=== PATIENT | female | born 1960 | race Asian ===

== ENCOUNTER 2017-10-09 20:17 | Emergency (ER) | payer SELFPAY ==
[~2017-10-09] VITALS: Ht 167.6 cm; Wt 81.6 kg
[~2017-10-09 20:17] MED LIST: LISI10TA5 PO
--- NOTE | 2017-10-09 20:20 | NUR ---
BBRA 881 FROM HOME. PT C/O FEVER AND N/V & COUGH X1 DAY. PT NOT COMMUNICATING WELL ON SYMPTOMS, PT IS KICKING, THRASHING AND BANGING. PT PLACED ON MONITOR AND GOWNED. WILL CONTINUE TO MONITOR.
[2017-10-09] MEDS ORDERED: LORAZEPAM INJ 2 MG/ML VIAL ONE (20:40)
--- NOTE | 2017-10-09 20:44 | NUR ---
VERBAL ORDER FROM DR. NELSON ATELIZABETH 1MG IM X1 NOW. MEDICATED PT ORDERED.
[2017-10-09] MEDS ORDERED: ONDANSETRON HCL/PF 4 MG/2 ML VIAL IVP ONE (21:00)
[2017-10-09] MEDS ORDERED: IV NS 0.9% 1,000 ML BAG IV ONE ×2 (21:00→22:00)
[2017-10-09] MEDS ORDERED: LORAZEPAM INJ 2 MG/ML VIAL IM ONE (21:00)
[2017-10-09] MEDS ORDERED: HALOPERIDOL LACTATE INJ 5 MG/ML VIAL ONE (21:01)
[2017-10-09] MEDS ORDERED: HALOPERIDOL LACTATE INJ 5 MG/ML VIAL IM ONE (21:30)
--- NOTE | 2017-10-09 21:36 | NUR ---
PT REMAINS RESTLESS, UNCOOPERATIVE, SPITTING, THRASHING AND BANGING. MD MADE AWARE WITH ORDERS RECEIVED. WILL CARRY OUT ORDERS.
[2017-10-09] MEDS ORDERED: ONDANSETRON HCL/PF 4 MG/2 ML VIAL ONE (21:44)
--- NOTE | 2017-10-09 21:45 | NUR ---
PT PLACED ON RESTRAINTS Addendum: 10/09/17 at 2157 by [email or web address] PER VERBAL MD ORDER
--- NOTE | 2017-10-09 22:10 | NUR ---
PT RESTING IN BED. VITAL SIGNS STABLE, PT ON MONITOR. NAD NOTED. RESPIRATIONS EVEN AND UNLABORED. CALL LIGHT WITHIN REACH.
--- NOTE | 2017-10-09 22:45 | NUR ---
PT'S SIGNIFICANT OTHER AT BESIDE, AWARE OF TREATMENT. PT RESTING COMFORTABLY. NAD NOTED. RESPIRATIONS EVEN AND UNLABORED. PT EASILY AROUSABLE. PT ON MONITOR, CALL LIGHT WITHIN REACH.
[2017-10-09 22:46] LABS: EOSINOPHILS % (AUTO) 0.1 % (0.0-6.0); HEMATOCRIT 39 % (33-45); HEMOGLOBIN 12.9 g/dL (11.5-14.8); LYMPHOCYTES # (AUTO) 0.9 /CMM (0.8-4.8); LYMPHOCYTES % (AUTO) 5.7 % (20.0-44.0); MEAN CORPUSCULAR HEMOGLOBIN 30 PG (26.0-33.0); MEAN CORPUSCULAR HGB CONC 33 g/dl (31.0-36.0); MEAN CORPUSCULAR VOLUME 93 fL (82-100); MONOCYTES # (AUTO) 0.8 /CMM (0.1-1.30); MONOCYTES % (AUTO) 5.1 % (2.0-12.0); NEUTROPHILS # (AUTO) 14.2 /CMM (1.8-8.9); NEUTROPHILS % (AUTO) 89.1 % (43.0-81.0); PLATELET COUNT (AUTO) 443 /CMM (150-450); RDW COEFFICIENT OF VARIATION 14.6 (11.5-15.0); RED BLOOD CELL COUNT(AUTO) 4.25 MIL/uL (4.0-5.2); WHITE BLOOD COUNT (AUTO) 15.9 K/uL (4.3-11.0)
[2017-10-09 22:54] LABS: CALCIUM, SERUM 8.7 mg/dL (8.5-10.1); CARBON DIOXIDE 22 mmol/L (21-32); CHLORIDE 108 mmol/L (98-107); CREATININE 1.3 mg/dL (0.6-1.3); GLUCOSE 109 mg/dL (74-106); SODIUM SERUM 143 mmol/L (136-145); UREA NITROGEN, BLOOD 26 mg/dL (7-18)
[2017-10-09 23:04] LABS: ACETAMINOPHEN 0 ug/ml (10-30); ALANINE AMINOTRANSFERASE 20 U/L (12-78); ALBUMIN 3.6 g/dL (3.4-5.0); ALCOHOL, BLOOD < 3 mg/dL (0-0); ALKALINE PHOSPHATASE 116 U/L (46-116); ASPARTATE AMINOTRANSFERASE 20 U/L (15-37); BILIRUBIN,DIRECT 0.1 mg/dL (0.0-0.2); BILIRUBIN,TOTAL 0.3 mg/dL (0.2-1.0); LIPASE 62 U/L (73-393); SALICYLATE 2.1 mg/dL (2.8-20.0); TOTAL PROTEIN, SERUM 7.9 g/dL (6.4-8.2)
[2017-10-09 23:05] LABS: TROPONIN I < 0.017 ng/mL (0.00-0.056)
--- NOTE | 2017-10-09 23:19 | NUR ---
URINE COLLECTED. CALLED LAB FOR HEATER INSTALLER
[2017-10-09 23:24] LABS: THYROID STIMULATING HORMONE 2.516 uIU/mL (0.358-3.74)
[2017-10-10 00:08] LABS: APPEARANCE,URINE SL CLOUDY (CLEAR); BILIRUBIN,URINE NEGATIVE (NEGATIVE); BLOOD, URINE TRACE-INTA Ery/uL (NEGATIVE); COLOR,URINE YELLOW (YELLOW); KETONES,URINE NEGATIVE (NEGATIVE); LEUKOCYTE ESTERASE ,URINE NEGATIVE (NEGATIVE); NITRITE, URINE NEGATIVE (NEGATIVE); PROTEIN,URINE NEGATIVE (NEGATIVE); UGLUCOSE NEGATIVE (NEGATIVE); UROBILINOGEN,URINE 0.2 EU/dL (0.2)
[2017-10-10 00:21] LABS: BACTERIA,URINE None seen /HPF (None Seen); SQUAMOUS EPITHELIAL CELL,UR Few /HPF (None Seen); WBC,URINE 0-2 /HPF (0-3)
--- NOTE | 2017-10-10 00:40 | NUR ---
PT BROUGHT BY RADOLOGIST FOR CT
--- NOTE | 2017-10-10 01:00 | NUR ---
PT BROUGHT BACK FROM CT
--- NOTE | 2017-10-10 02:45 | NUR ---
PT RESTING IN BED. EASILY AROUSABLE. RESPIRATIONS EVEN AND UNLABORED. NAD NOTED. CALL LIGHT BY BEDSIDE. PT ON MONTIOR. SIGNIFICANT OTHER LEFT BED SIDE AND STATES HE WILL BE IN HIS CAR CLOSE BY.
--- NOTE | 2017-10-10 06:30 | NUR ---
WAITING FOR PT'S SIGNIFICANT OTHER TO DISCHARGE PT
--- NOTE | 2017-10-10 08:00 | NUR ---
PT PROVIDED WITH FOOD TRAY REQUESTED.
--- NOTE | 2017-10-10 09:40 | NUR ---
PT'S SIGNIFICANT OTHER AT BS FOR DISCHARGE. UPDATED WITH PT'S STATUS.
--- NOTE | 2017-10-10 10:50 | NUR ---
Patient discharged to home in stable condition. Written and verbal after care instructions given. Patient verbalizes understanding of instruction.
--- NOTE | 2017-10-10 11:00 | NUR ---
IV removed. Catheter intact and site benign. Pressure and 4x4 applied to site. No bleeding noted.
[2017-10-10 11:43] VITALS: BP 135/88
== END 2017-10-10 11:45 | disposition home or self-care (01) ==
LOC: ER 20:18
DX: F15.10 Other stimulant abuse, uncomplicated (principal); R11.2 Nausea with vomiting, unspecified; R79.89 Other specified abnormal findings of blood chemistry; D72.829 Elevated white blood cell count, unspecified; R40.4 Transient alteration of awareness
CPT/HCPCS: 36415; 70450-TC; 71045-TC; 80048-TC; 80076-TC; 80305; 81000-TC; 83690-TC; 84443-TC; 84484-TC; 85025-TC; 87086-TC; 87186-TC; A4606; G0480; J1630; J2060; J2405; J7030; Z7610